=== PATIENT | male | born 1940 | race Caucasian/White ===

== ENCOUNTER 2020-10-06 09:18 | Inpatient (IN) ==
[2020-10-06 09:46] LABS: Basophils % 0.3 % (0.0-0.8); Eosinophils # 0.2 10*3/uL (0.0-0.87); Eosinophils % 1.7 % (0.00-10.9); Hematocrit 41.1 VOL% (42.0-52.0); Hemoglobin 13.5 GM/DL (14.0-18.0); Immature Granulocytes % 0.5 %; Immature Granulocytes Absolute 0.04 #; Lymphocytes # 1.9 10*3/uL (1.4-4.0); Lymphocytes % 21.6 % (21.2-54.2); Mean Corpuscular HGB Conc 32.8 GM/DL (32-36); Mean Corpuscular Volume 90.9 FL (87-102); Monocytes % 7.9 % (1.7-12.7); Platelet Count 261 T/CUMM (130-400); Red Blood Count 4.52 MC/CUMM (3.8-5.5); White Blood Count 8.6 T/CUMM (4-12)
[2020-10-06 10:01] LABS: Calcium 9.4 MG/DL (8.5-10.1); Osmolality,Calculated 282.4 MOS/KG (273-304); Potassium 3.9 MMOL/L (3.5-5.1)
[2020-10-06] MEDS ORDERED: cefTRIAXone 1,000 MG VIAL ONE (10:07)
[2020-10-06] MEDS ORDERED: LACTATED RINGERS 1,000 ML IV SCH (10:30)
[2020-10-06] MEDS ORDERED: BUPIVACAINE MPF 0.25% 30 ML VIAL ONE (12:03)
[2020-10-06] MEDS ORDERED: MIDAZOLAM 2 MG/2 ML VIAL ONE (12:03)
[2020-10-06] MEDS ORDERED: LIDOCAINE 1% 5 ML VIAL ONE (12:03)
[2020-10-06] MEDS ORDERED: fentaNYL 100 MCG/2 ML VIAL ONE (12:03)
[2020-10-06] MEDS ORDERED: SEVOFLURANE 1 UNIT/15 MINUTE INH ONE ×3 (12:29→15:13)
[2020-10-06] MEDS ORDERED: LIDOCAINE 2% 5 ML VIAL ONE (12:29)
[2020-10-06] MEDS ORDERED: propofoL 200 MG/20 ML VIAL IV ONE (12:29)
[2020-10-06] MEDS ORDERED: PHENYLEPHRINE 1 MG/10 ML SYRINGE IV ONE (12:29)
[2020-10-06] MEDS ORDERED: ROCURONIUM 50 MG/5 ML VIAL IV ONE (12:29)
[2020-10-06] MEDS ORDERED: fentaNYL 250 MCG/5 ML VIAL ONE (12:31)
[2020-10-06] MEDS ORDERED: LACTATED RINGERS 1,000 ML IV ONE (13:13)
[2020-10-06] MEDS ORDERED: ePHEDrine 50 MG/ML VIAL ONE (13:21)
[2020-10-06] MEDS ORDERED: PHENYLEPHRINE 10 MG/1 ML VIAL IV ONE (13:22)
[2020-10-06] MEDS ORDERED: ROPIVACAINE 0.5% 30 ML VIAL ONE (13:52)
[2020-10-06] MEDS ORDERED: NEOSTIGMINE 10 MG/10 ML VIAL ONE (15:14)
[2020-10-06] MEDS ORDERED: GLYCOPYRROLATE 0.4 MG/2 ML VIAL ONE (15:14)
[2020-10-06 15:49] LABS: Bilirubin,Urine Negative (Negative); Blood, Urine Negative (Negative); Glucose,Urine (UA) Negative (Negative); Ketones,Urine Negative (Negative); Nitrite,Urine Negative (Negative); Protein,Urine Negative; RBC,Urine 1 /HPF (0-4); Urine Appearance CLEAR (Clear); Urine Color Straw (Yellow); Urine Specific Gravity 1.011 (1.001-1.035); Urine Urobilinogen < 2.0 EU/DL (0.2-1.0); WBC,Urine 1 /HPF (0-6)
[2020-10-06] MEDS ORDERED: PROMETHAZINE 25 MG/1 ML VIAL IM PRN (15:53)
[2020-10-06] MEDS ORDERED: HYDROmorphone 2 MG/1 ML VIAL IV PRN (15:53)
[2020-10-06] MEDS ORDERED: ONDANSETRON 4 MG/2 ML VIAL IV PRN (15:53)
[2020-10-06] MEDS ORDERED: ACETAMINOPHEN 325 MG TABLET PO PRN (15:53)
[2020-10-06] MEDS ORDERED: oxyCODONE/ACETAMINOPHEN 5-325 MG TABLET PO PRN (15:57)
[2020-10-06] MEDS ORDERED: diphenhydrAMINE 50 MG/1 ML VIAL IV PRN (16:03)
[2020-10-06] MEDS ORDERED: SIMETHICONE CHEW 80 MG TABLET PO PRN (16:03)
[2020-10-06] MEDS ORDERED: DEXAMETHASONE 4 MG/1 ML VIAL ONE (16:15)
[2020-10-06] MEDS ORDERED: ONDANSETRON 4 MG/2 ML VIAL ONE (16:15)
[2020-10-06] MEDS ORDERED: ACETAMINOPHEN 1,000 MG/100 ML VIAL IV ONE (16:15)
[2020-10-06 17:08] LABS: Basophils % 0.2 % (0.0-0.8); Eosinophils # 0.1 10*3/uL (0.0-0.87); Eosinophils % 0.5 % (0.00-10.9); Hematocrit 39.3 VOL% (42.0-52.0); Hemoglobin 12.9 GM/DL (14.0-18.0); Immature Granulocytes % 0.3 %; Immature Granulocytes Absolute 0.05 #; Lymphocytes # 1.8 10*3/uL (1.4-4.0); Lymphocytes % 11.1 % (21.2-54.2); Mean Corpuscular HGB Conc 32.8 GM/DL (32-36); Mean Corpuscular Volume 91.2 FL (87-102); Monocytes % 5.5 % (1.7-12.7); Neutrophils % 82.4 % (38.7-73.9); Platelet Count 225 T/CUMM (130-400); Red Blood Count 4.31 MC/CUMM (3.8-5.5); Red Cell Distribution Width 14.7 % (9.3-17.3); White Blood Count 16.2 T/CUMM (4-12)
[2020-10-06 17:33] LABS: Osmolality,Calculated 279.7 MOS/KG (273-304); Potassium 3.5 MMOL/L (3.5-5.1)
[2020-10-06] MEDS: SODIUM CHLORIDE 0.9% 1,000 ML IV SCH (17:55)
[2020-10-06] MEDS: ACETAMINOPHEN 325 MG TABLET PO SCH ×3 (18:04→22:59)
[2020-10-06] MEDS: cefTRIAXone 1,000 MG in SYRINGE 1 EACH IV SCH (18:05)
[2020-10-06] MEDS: DOCUSATE SODIUM 100 MG CAPSULE PO SCH (21:10)
[2020-10-06] MEDS: ALVIMOPAN 12 MG CAPSULE PO SCH (21:10)
[2020-10-06] MEDS: FAMOTIDINE 20 MG TABLET PO SCH (21:11)
[2020-10-07] MEDS: ACETAMINOPHEN 325 MG TABLET PO SCH ×3 (05:13→22:07)
[2020-10-07] MEDS: SODIUM CHLORIDE 0.9% 1,000 ML IV SCH (07:12)
[2020-10-07 07:20] LABS: Basophils % 0.1 % (0.0-0.8); Hematocrit 37.4 VOL% (42.0-52.0); Hemoglobin 12.9 GM/DL (14.0-18.0); Immature Granulocytes % 0.4 %; Immature Granulocytes Absolute 0.04 #; Lymphocytes # 0.5 10*3/uL (1.4-4.0); Lymphocytes % 4.7 % (21.2-54.2); Mean Corpuscular HGB Conc 34.5 GM/DL (32-36); Mean Corpuscular Volume 87.4 FL (87-102); Mean Platelet Volume 8.8 FL (9.6-12.0); Neutrophils % 89.8 % (38.7-73.9); Platelet Count 250 T/CUMM (130-400); Red Blood Count 4.28 MC/CUMM (3.8-5.5); Red Cell Distribution Width 14.3 % (9.3-17.3); White Blood Count 10.4 T/CUMM (4-12)
[2020-10-07 07:41] LABS: Hypochromasia 1+; Lymphocytes 3 % (20-55); Microcytosis 1+; Platelet Estimate Adequate; Segmented Neutrophils 94 % (50-85); Total Cells Counted 100
[2020-10-07 07:55] LABS: Osmolality,Calculated 276.8 MOS/KG (273-304); Potassium 4.2 MMOL/L (3.5-5.1)
[2020-10-07] MEDS: ATORVASTATIN 20 MG TABLET PO SCH (08:58)
[2020-10-07] MEDS: amLODIPine 10 MG TABLET PO SCH (08:58)
[2020-10-07] MEDS: DOCUSATE SODIUM 100 MG CAPSULE PO SCH ×2 (08:58→21:25)
[2020-10-07] MEDS: ALVIMOPAN 12 MG CAPSULE PO SCH ×2 (08:58→21:25)
[2020-10-07] MEDS ORDERED: THIAMINE 200 MG/2 ML VIAL IM SCH (09:00)
[2020-10-07] MEDS ORDERED: FOLIC ACID INJ 1 MG in SYRINGE 1 EACH IV SCH (09:00)
[2020-10-07] MEDS: cefTRIAXone 1,000 MG in SYRINGE 1 EACH IV SCH (17:49)
[2020-10-07] MEDS: FAMOTIDINE 20 MG TABLET PO SCH (21:26)
[2020-10-08] MEDS: ACETAMINOPHEN 325 MG TABLET PO SCH ×3 (01:53→11:20)
[2020-10-08 03:54] LABS: Basophils % 0.1 % (0.0-0.8); Hematocrit 35.8 VOL% (42.0-52.0); Hemoglobin 12.5 GM/DL (14.0-18.0); Immature Granulocytes % 0.2 %; Immature Granulocytes Absolute 0.03 #; Lymphocytes % 8.3 % (21.2-54.2); Mean Corpuscular HGB Conc 34.9 GM/DL (32-36); Mean Corpuscular Volume 86.7 FL (87-102); Mean Platelet Volume 8.9 FL (9.6-12.0); Monocytes % 7.5 % (1.7-12.7); Neutrophils % 83.9 % (38.7-73.9); Platelet Count 240 T/CUMM (130-400); Red Blood Count 4.13 MC/CUMM (3.8-5.5); Red Cell Distribution Width 14.8 % (9.3-17.3)
[2020-10-08 04:25] LABS: Albumin 2.9 G/DL (3.4-5.0); Bilirubin,Total 0.5 MG/DL (0.2-1.0); Calcium 8.9 MG/DL (8.5-10.1); Osmolality,Calculated 284.3 MOS/KG (273-304); Potassium 3.9 MMOL/L (3.5-5.1); Total Protein 6.7 G/DL (6.4-8.2)
[2020-10-08] MEDS: DOCUSATE SODIUM 100 MG CAPSULE PO SCH (09:41)
[2020-10-08] MEDS: ALVIMOPAN 12 MG CAPSULE PO SCH (09:41)
[2020-10-08] MEDS: amLODIPine 10 MG TABLET PO SCH (09:42)
[2020-10-08] MEDS: ATORVASTATIN 20 MG TABLET PO SCH (09:42)
[2020-10-08 12:24] VITALS: BP 131/78
== END 2020-10-08 13:10 | disposition home or self-care (01) | DRG 657 ==
LOC: N.OR 09:18 → N.SDSINP 09:20 → N.4E 17:26
PROVIDERS: ADMIT Surgery; ATTEND Surgery